=== PATIENT | female | born 1965 | race Two or more races ===

== ENCOUNTER 2018-08-02 09:29 | Outpatient (CLI) | payer OTHER ==
[~2018-08-02 09:29] MED LIST: FIORICET 50-321 EACH PO
== END 2018-08-02 09:50 | disposition home or self-care (01) ==
LOC: RAD 09:29
DX: N62 Hypertrophy of breast (principal); N64.2 Atrophy of breast

== ENCOUNTER 2021-02-03 06:00 | Day surgery (SDC) | payer OTHER ==
[~2021-02-03 06:00] MED LIST changes: +CYMBALTA60 MG PO; +EMGALITY P120 MG/1 M; +PROMETRIUM200 MG PO
[2021-02-03] MEDS ORDERED: PERCOCET 5-3251 EACH PO (08:33)
[2021-02-03] MEDS ORDERED: RECTICARE30 GM TOP (08:34)
== END 2021-02-03 15:10 | disposition home or self-care (01) ==
LOC: CIR.AMB 06:00
PROVIDERS: ATTEND Surgery
DX: K64.8 Other hemorrhoids (principal); K64.4 Residual hemorrhoidal skin tags; Z20.822 Contact with and (suspected) exposure to COVID-19